=== PATIENT | female | born 1970 | race Two or more races ===

== ENCOUNTER 2018-04-11 14:00 | Inpatient (IN) | payer OTHER ==
[~2018-04-11] VITALS: Ht 154.9 cm; Wt 72.6 kg
[2018-04-11] MEDS ORDERED: METOPROLOL SUCC50 MG PO (15:24)
[2018-04-11] MEDS ORDERED: NORVASC5 MG PO (15:24)
[2018-04-21] MEDS ORDERED: CODE1TAB37 PO (09:23)
[2018-04-21] MEDS ORDERED: NAPR500T14 PO (09:23)
== END 2018-04-21 10:43 | disposition home or self-care, planned readmission (81) | DRG 743 ==
LOC: O/R 04-18 07:27 → OB/GYN 04-18 10:30
PROVIDERS: ADMIT Obstetrics & Gynecology
PROC: 0UT20ZZ Resection of Bilateral Ovaries, Open Approach (ICD-10-PCS; 2018-04-18)
PROC: 0UT70ZZ Resection of Bilateral Fallopian Tubes, Open Approach (ICD-10-PCS; 2018-04-18)
PROC: 0TJB8ZZ Inspection of Bladder, Via Natural or Artificial Opening Endoscopic (ICD-10-PCS; 2018-04-18)
PROC: 0UT90ZZ Resection of Uterus, Open Approach (ICD-10-PCS; principal; 2018-04-18 10:30)
DX: D25.1 Intramural leiomyoma of uterus (principal); N72 Inflammatory disease of cervix uteri; N83.02 Follicular cyst of left ovary; N83.01 Follicular cyst of right ovary; N83.292 Other ovarian cyst, left side; N83.291 Other ovarian cyst, right side; N81.11 Cystocele, midline; N87.0 Mild cervical dysplasia; I10 Essential (primary) hypertension